=== PATIENT | female | born 1940 | race Caucasian/White ===

== ENCOUNTER 2019-11-24 06:33 | Inpatient (IN) ==
--- NOTE | 2019-10-23 13:32 | PAT Medication Instructions ---
Medication Instructions Date of Service October 23, 2019 Home Medications L. gasseri-B. bifidum-B longum [[employer]] 1 cap PO QAM cholecalciferol (vitamin D3) [Vitamin D3] 25 mcg PO QAM levothyroxine 112 mcg PO QAM lisinopril 20 mg PO QAM meloxicam 15 mg PO DAILY PRN simvastatin 10 mg PO HS vitamins A,C,T-tckn-shszqq [PreserVision AREDS] 1 tab PO BID ASK your surgeon for instructions meloxicam 15 mg PO DAILY PRN STOP taking 2 weeks before surgery vitamins A,C,G-jxrv-vgynlu [PreserVision AREDS] 1 tab PO BID DO NOT take the morning of surgery L. gasseri-B. bifidum-B longum [[employer]] 1 cap PO QAM cholecalciferol (vitamin D3) [Vitamin D3] 25 mcg PO QAM lisinopril 20 mg PO QAM Take morning of surgery With a small sip of water, OTHERWISE NOTHING TO EAT OR DRINK AFTER MIDNIGHT: levothyroxine 112 mcg PO QAM Take evening before surgery simvastatin 10 mg PO HS Other Notes If you have any questions please call us at [phone] or [phone] or [phone] or [phone]
--- NOTE | 2019-10-25 11:55 | Anesthesiology Consultation ---
Date of Service October 25, 2019 Assessment & Plan (1) Encounter for pre-operative examination: Chart Review Chart Review: Acceptable Risk for Surgery (pending Covid testing ) and Patient seen in Pre Admission Testing Per PAT appt 10/25/19, patient traveled to [facility] two weeks ago to visit son. Wore mask and social distance while visiting outside. Does admit to congestion secondary to allergies- chronic and stable. Educated patient to foll ow up with surgeon's office regarding Covid testing. Educated on importance of self quarantining, social distancing and wearing mask in public both for herself and household contacts. Teaching & Discussion Pre-Anesthesia Teaching/Discussion Notes: Instructed NPO after midnight before surgery,except medications with 15 cc of water. Medication instructions provided according to the PAT guidelines. History Surgery Operation Date: 11/24/19 07:00 Proposed Procedures p Right Total Shoulder Arthroplasty - Carter Norwood, Height/Weight Height: 5 ft 5 in Weight: 83.9 kg Allergies Allergy/AdvReac Type Severity Reaction Status Date / Time cashew nut Allergy Intermediate "FUNNY Verified 10/19/19 11:10 FEELING IN THROAT" latex Allergy Intermediate "BURN ON Verified 10/25/19 11:57 BODY" sulfite Allergy Mild RASH Verified 10/19/19 11:10 No Known Drug Allergies Allergy Unknown . Verified 03/18/16 07:50 Medications Home Medications Medication Instructions Recorded Confirmed Last Taken L. gasseri-B. bifidum-B longum 1 cap PO QAM 10/19/19 10/19/19 Unknown [[facility]] cholecalciferol (vitamin D3) 25 mcg PO QAM 10/19/19 10/19/19 Unknown [Vitamin D3] levothyroxine 112 mcg PO QAM 10/19/19 10/19/19 Unknown lisinopril 20 mg PO QAM 10/19/19 10/19/19 Unknown meloxicam 15 mg PO DAILY PRN 10/19/19 10/19/19 Unknown simvastatin 10 mg PO HS 10/19/19 10/19/19 Unknown vitamins A,C,G-xucp-lkjltc 1 tab PO BID 10/19/19 10/19/19 Unknown [PreserVision AREDS] tramadol 50 mg tablet 50 mg PO Q6H PRN #30 tab 10/25/19 10/25/19 Unknown Past Medical History Medical History Environmental allergies Heart palpitations HX 2006- s/p ablation- thought palpitations were triggered by elevated Synthyroid dose History of skin cancer CHIN AREA (REMOVED) Hyperlipidemia Hypertension Hypothyroidism Macular degeneration LEFT EYE Osteoarthritis Overactive bladder Exercise / Class Metabolic Activity II 4-5 Yardwork/Stairs/Walk up hill (one flight of stairs - no chest pain or SOB) Past Family History Family History Other No significant family history Past Surgical History Surgical History History of cardiac radiofrequency ablation 2005 AT [facility] History of cataract surgery RT/LEFT History of colonoscopy History of tonsillectomy History of tooth extraction Past Anesthesia History No Hx of Anesthesia Complications and No Family Hx of Anesthesia Complications History of PONV No Hx of PONV (pain meds can cause nausea ) and No Hx of Motion Sickness Social History Smoking Status: Former smoker (smoked socially in college ) tobacco type: cigarettes Do You Dip or Chew Tobacco: No Smoking End Date: QUIT 50 YEARS AGO Hx Alcohol Use: Yes alcohol intake frequency: holidays/special occasions only Hx Substance Use: No substance use type: does not use Review of Systems Patient denies chest pain, shortness of breath, dyspnea on exertion, reflux, cough, wheezing, palpitations. No hx of seizures, stroke, UT, apnea/snoring (does live alone). No hx of blood clots or blood transfusions Physical Exam Vital Signs VITALS BP 137/74 P 67 TEMP 98.1 SP02 96% RESP 16 Constitutional no acute distress ENMT Mouth: no TMJ clicking Thyromental Distance: > or= 3.5 Finger Breadths (3.5) Mallampati Class: I Partial lower dentures Crowns on top and bottom front teeth Neck + limited neck extension (moderate ) Respiratory normal respiratory effort; no respiratory distress Auscultation: lungs clear to auscultation bilaterally; no wheezes Cardiovascular Rate/Rhythm: regular rate and regular rhythm Heart Sounds: no murmur Vessels: no carotid bruit Musculoskeletal Spine: no pain with cervical ROM Neurologic moves all extremities Psychiatric Orientation: alert Testing Laboratory Results 10/25/19 12:15 10/25/19 12:15 PT 10.8 Seconds (9.0-12.0) 10/25/19 12:15 INR 1.0 (0.9-1.1) 10/25/19 12:15 APTT 30.5 Seconds (21.0-31.0) 10/25/19 12:15 Blood Type O Negative 10/25/19 12:15 Antibody Screen NEGATIVE 10/25/19 12:15 Electrocardiogram Date: 10/25/19 Findings: + NSR @ (63) RBBB. Chest X-Ray Date: 10/25/19 Findings: + NAD
--- NOTE | 2019-10-25 13:13 | XRay Report ---
XR chest Pre-admission PA/Lat CLINICAL HISTORY: Preoperative evaluation. COMPARISON STUDY: Chest radiograph December 07, 2006. FINDINGS: Lung volumes are normal. Lungs are clear. There is no pneumothorax or pleural effusion. Car diac size is normal. Mediastinal contours are normal. There is no evidence for pulmonary edema. Osteo arthritis of the bilateral glenohumeral joints, greater on the left, is incidentally noted. IMPRESSION: No acute cardiopulmonary findings. ACT 112: Negative or not required by law. Electronically signed by: John Grullon M.D. 10/25/2019 1:12 PM
[2019-10-25 14:14] LABS: Basophils # (auto) 0.02 K/uL (0-0.2); Basophils % (auto) 0.3 %; Eosinophils # (auto) 0.05 K/uL (0-0.5); Eosinophils % (auto) 0.7 %; Hematocrit (blood only) 43.7 % (37-47); Hemoglobin 14.4 g/dL (12.0-16.0); Immature Granulocytes # (auto) 0.02 K/uL (0.00-0.02); Immature Granulocytes % (auto) 0.3 %; Lymphocytes # (auto) 0.89 K/uL (1.2-3.4); Mean Corpuscular Hemoglobin 30.1 pg (25-34); Mean Corpuscular Volume 91.2 fL (80-100); Mean Platelet Volume 9.9 fL (7.4-10.4); Monocytes # (auto) 0.31 K/uL (0.11-0.59); Monocytes % (auto) 4.5 %; Neutrophils # (auto) 5.53 K/uL (1.4-6.5); Neutrophils % (auto) 81.2 %; Platelet Count 282 K/uL (130-400); RDW Coefficient of Variation 12.9 % (11.5-14.5); RDW Standard Deviation 42.9 fL (36.4-46.3); Red Blood Count 4.79 M/uL (4.2-5.4); White Blood Count 6.82 K/uL (4.8-10.8)
[2019-10-25 14:20] LABS: BUN Creatinine Ratio 22.2 (10-20); Calcium 8.8 mg/dl (8.5-10.1); Creatinine Clr Calc Pharmacy 70.7 ml/min; Est GFR (Non-African American) 82.8; Potassium 4.3 mmol/L (3.5-5.1)
[2019-10-25 14:32] LABS: Partial Thromboplastin Ratio 1.1; Partial Thromboplastin Time 30.5 Seconds (21.0-31.0); Prothrombin Time 10.8 Seconds (9.0-12.0)
--- NOTE | 2019-10-25 14:45 | Electrocardiogram Report ---
Test Reason : Blood Pressure : / mmHG Vent. Rate : 063 BPM Atrial Rate : 063 BPM P-R Int : 158 ms QRS Dur : 142 ms QT Int : 442 ms P-R-T Axes : 065 090 050 degrees QTc Int : 452 ms Normal sinus rhythm Right bundle branch block Abnormal ECG When compared with ECG of 07-DEC-2006 12:26, HR has decreased by 77 bpm Supraventricular tachycardia no longer present Right bundle branch block now present consistently Confirmed by Ari Hagan ([id number]) on 10/25/2019 2:44:45 PM Referred By: Carter Norwood Confirmed By:Ari Hagan
--- NOTE | 2019-11-23 07:39 | History & Physical Report ---
Date of Service November 23, 2019 Assessment & Plan (1) Osteoarthritis of both shoulders: We will proceed with a right total shoulder arthroplasty. Postoperatively she will be placed in a sling and kept overnight in the hospital for postoperative medical management. She plans to use [facility] upon discharge. Present on Admission?: Yes History of Present Illness Chief Complaint: Primary osteoarthritis of the right shoulder Primary Care Provider: Kristofer Dowell DO Ashtyn is a pleasant 78-year-old female who is been having bilateral shoulder pain. The right is worse than the left. She is been treated by recreation counselor at [facility]. 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 After failing extensive conservative treatment, she has elected to proceed with a right total shoulder arthroplasty. Allergies Allergy/AdvReac Type Severity Reaction Status Date / Time cashew nut Allergy Intermediate "FUNNY Verified 10/19/19 11:10 FEELING IN THROAT" latex Allergy Intermediate "BURN ON Verified 10/25/19 11:57 BODY" sulfite Allergy Mild RASH Verified 10/19/19 11:10 No Known Drug Allergies Allergy Unknown . Verified 03/18/16 07:50 Home Medications Home Medications Medication Instructions Recorded Confirmed Type L. gasseri-B. bifidum-B longum 1 cap PO QAM 10/19/19 10/19/19 History [[facility]] cholecalciferol (vitamin D3) 25 mcg PO QAM 10/19/19 10/19/19 History [Vitamin D3] levothyroxine 112 mcg PO QAM 10/19/19 10/19/19 History lisinopril 20 mg PO QAM 10/19/19 10/19/19 History meloxicam 15 mg PO DAILY PRN 10/19/19 10/19/19 History simvastatin 10 mg PO HS 10/19/19 10/19/19 History vitamins A,C,R-nlja-pfwlsx 1 tab PO BID 10/19/19 10/19/19 History [PreserV[facility] AREDS] tramadol 50 mg tablet 50 mg PO Q6H PRN #30 tab 10/25/19 10/25/19 Rx Past Med/Surg History Medical History Environmental allergies Heart palpitations HX 2005- s/p ablation- thought palpitations were triggered by elevated Synthyroid dose History of skin cancer CHIN AREA (REMOVED) Hyperlipidemia Hypertension Hypothyroidism Macular degeneration LEFT EYE Osteoarthritis Overactive bladder Surgical History History of cardiac radiofrequency ablation 2005 AT [facility] History of cataract surgery RT/LEFT History of colonoscopy History of tonsillectomy History of tooth extraction Family History Other No significant family history Social History Smoking Status: Former smoker (smoked socially in college ) Smoking End Date: QUIT 50 YEARS AGO; Second Hand Exposure: Yes ( A CHILD); Do You Dip or Chew Tobacco: No; Tobacco Cessation Education Requested by Patient: No Hx Alcohol Use: Yes Hx Substance Use: No Preferred Language: Kiswahili Shift Boss Required: No Beliefs That Will Affect Care: None Current Living Situation: Alone Feels Safe at Home: Yes Safety Concerns: Feels Safe At This Time Review of Systems Review of Systems: All systems reviewed & are unremarkable except as noted in HPI & below Physical Exam Constitutional: WD/WN, vitals as above Eyes: PERRL, conjunctivae normal, anicteric sclerae ENMT: external ear and nose normal, oropharynx normal Neck: trachea midline, no thyromegaly Respiratory: normal respiratory effort Cardiovascular: RRR, no murmur, no edema Gastrointestinal (Abdomen): normal bowel sounds, soft, nontender, no hepatosplenomegaly Musculoskeletal: Physical examination of the right shoulder reveals decreased range of motion and crepitis throughout. There is good strength with full can testing and external rotation. There is tenderness palpation along the anterior glenohumeral joint line. The right upper extremity is neurovascularly intact. Psychiatric: A+Ox3, euthymic affect Results & Data Results & Data ([facility]) Diagnostic Findings Radiographs of the right shoulder show osteoarthritis of the glenohumeral joint. There is joint space narrowing, osteophyte formation, and [id number] articulation. PG Care Time/CCT Total # of Minutes Spent Total Time Spent with Patient: Total time spent is greater than 50% in coordination of care (as documented) at patient's floor/unit and/or counseling patient: Coding Level of Care Code 32192 Initial Inpt Care Lvl 3 Diagnoses Osteoarthritis of both shoulders M19.011; M19.012
[~2019-11-24 06:33] MED LIST: ACETAMINOPHEN 500 MG TAB PO SCH; BUPIVACAINE 0.5 % 5 MG/1 ML PF 10ML VIAL ONE; CEFAZOLIN 2000MG 2,000 MG/15 ML SYR IV SCH; FAMOTIDINE 20 MG TAB PO SCH; GABAPENTIN 300 MG CAP PO SCH; LR 15ML/HR IV SCH; LR 60ML/HR IV SCH; ROPIVACAINE 0.5% HCL/PF 150 MG, BUPIVACAINE 0.5% MPF 30 ML, EPINEPHrine 30MG/30ML (OR U... INSTIL SCH; TRANEXAMIC ACID 1,000 MG **IV Intra-op IV SCH; TRANEXAMIC ACID 1,000 MG **IV Pre-op IV SCH; dexAMETHasone 4 MG TAB PO SCH
--- NOTE | 2019-11-24 06:54 | History & Physical Bridge Note ---
Date of Service November 24, 2019 History & Physical Bridge Note I have examined the patient, reviewed the History & Physical and in the interval since the performance of the History & Physical I have noted the following changes of clinical significance: no changes noted
[2019-11-24] MEDS ORDERED: MIDAZOLAM HCL 1 MG/ML 2ML VIAL ONE (07:54)
[2019-11-24] MEDS ORDERED: fentaNYL citrate 100 MCG/2 ML VIAL ONE (07:54)
[2019-11-24] MEDS ORDERED: METOCLOPRAMIDE HCL INJ 5 MG/ML 2 ML VIAL IV PRN ×2 (08:01→12:16)
[2019-11-24] MEDS ORDERED: ATROPINE SULFATE 0.1 MG/ML 10ML SYR IV PRN (08:01)
[2019-11-24] MEDS ORDERED: PROMETHAZINE HCL 12.5 MG in SODIUM CHLORIDE 0.9% 50 ML IV PRN (08:01)
[2019-11-24] MEDS ORDERED: HYDROmorphone INJ 2 MG/ML SYR/VIAL IV PRN (08:01)
[2019-11-24] MEDS ORDERED: ePHEDrine sulfate 50 MG/ML AMP IV PRN (08:01)
[2019-11-24] MEDS ORDERED: ONDANSETRON INJ 2 MG/ML 2 ML VIAL IV PRN ×2 (08:01→12:16)
[2019-11-24] MEDS ORDERED: fentaNYL citrate 100 MCG/2 ML VIAL IV PRN (08:01)
[2019-11-24] MEDS ORDERED: LIDOCAINE HCL 2% MPF (LOCAL) 5 ML VIAL INFIL ONE (08:13)
[2019-11-24] MEDS ORDERED: ORTHO JOINT ANESTHETIC ONE (08:16)
[2019-11-24] MEDS ORDERED: DEXAMETHASONE SOD INJ 4 MG/ML VIAL ONE (09:54)
[2019-11-24] MEDS ORDERED: GLYCOPYRROLATE 0.2 MG/ML VIAL ONE (09:54)
[2019-11-24] MEDS ORDERED: PROPOFOL IV EMULSION 10 MG/ML 20 ML VIAL IV ONE (09:54)
[2019-11-24] MEDS ORDERED: ROCURONIUM BROMIDE 10 MG/ML 5 ML VIAL IV ONE (09:54)
[2019-11-24] MEDS ORDERED: ONDANSETRON INJ 2 MG/ML 2 ML VIAL ONE (09:54)
[2019-11-24] MEDS ORDERED: NEOSTIGMINE METHYLSULFATE 5 MG/5 ML SYR ONE (09:54)
[2019-11-24] MEDS ORDERED: LIDOCAINE HCL 2% 2 ML VIAL/AMP(20MG/ML) INFIL ONE (09:54)
--- NOTE | 2019-11-24 10:26 | Operative Report ---
PG Post Operative Report Pre & Post Diagnosis Operation Date: 11/24/19 08:50 Pre-Op Diagnosis: Right Shoulder Degenerative Joint Disease with disease of the long head of the biceps tendon Post-Op Diagnosis: Right Shoulder Degenerative Joint Disease with disease of the long head of the biceps tendon I identified the patient and participated in the time-out.: Yes Procedure Operation Date: 11/24/19 08:50 Actual Procedures p Right Total Shoulder Arthroplasty with open biceps tenodesis as a distinct and separate procedure (modifier 59) (Right) - Carter Norwood DO Surgeon Carter Norwood DO Contact Center Agent Carter Verdin PAC Estimated Blood Loss 200 Findings Consistent with Post-Op Diagnosis Specimens Right humeral head Complications none Disposition Disposition: Recovery Room Indications Ashtyn is a pleasant 79-year-old female who presented my office with chronic increasing right shoulder pain. X-rays and clinical examination were diagnostic for advanced osteoarthritis of the right shoulder. After failing conservative treatment, she elected proceed with a right total shoulder arthroplasty. Description of Procedure A CPT code modifier 59: The long head of the biceps tendon was enlarged and inflamed consistent with tendinopathy. A tenodesis was opted. This was a separate and distinct portion of the procedure. For these reasons, a CPT code modifier 59 will be added to this case. Implants used: I used a Biomet Comprehensive total shoulder arthroplasty system with a size 10 press fit micro-humeral stem, a size 46 x 18 eccentric humeral head, and a 3 si ze glenoid with a TM peg. The glenoid was cemented in place with Palacos G cement. Ashtyn arrived at [facility] for the above procedure. She was seen in the preoperative holding area and the operative extremity was identified and signed. She was given a preoperative antibiotic, TXA, and an interscalene nerve block. She was taken back to the operating room, laid on table in supine p osition, and put under general anesthesia. She was then put into the beachchair position. The shoulder was then prepped and draped in sterile fashion. A timeout was done and the patient and the operative extremity was properly identified. A deltopectoral approach was used. Dissection was taken down through the fascia and the deltoid was retracted laterally and the conjoined tendon was retracted medially. The anterior shoulder was exposed. The biceps groove was opened up and the biceps tendon was examined extensively. The biceps tendon demonstrated enlargement and inflammatory changes consistent with longstanding inflammation in the context of osteoarthritis. The long head of the biceps tendon was then tenodesed to the upper border of the pectoralis major. This was a separate and distinct portion of the procedure. The subscapularis was then released off the lesser tuberosity with a centimeter of cuff tissue remaining. The inferior capsule was released and the humeral head was dislocated. The rotator cuff was inspected and intact. A canal finding reamer was sent down the center of the humeral canal. Sequential reaming up to a size 10 reamer was done. Offset reamer a proximal humeral resection guide was placed. The proximal humerus was resected at 135 of inclination and 30 of retroversion. Inferior osteophytes were then removed and the glenoid was exposed. Time was spent doing an appropriate labral release. The glenoid measured to be a size 3. A [email or web address] signature guide was then attached onto the anterior rim of the glenoid. A 3.2 mm Steinmann pin was then placed in the total shoulder arthroplasty hole. The glenoid was then reamed with a propeller reamer. The central post cutter was then used to prepare for the central boss. The cannulated peripheral peg drill guide was then placed and 3 peg holes were drilled. The final size 3 glenoid was then cemented in place with Palacos G cement. Surrounding soft tissues were then injected with 100 cc of an orthopedic pain control cocktail. Once cement had dried the proximal humerus was once again exposed. Sequential broaching of the humerus up to a size 10 broach was done. Off that broach a size 46 x 18 eccentric humeral head was trialed. The shoulder was then reduced, brought through a full range of motion, and felt to be stable. The shoulder was then dislocated and the broach was removed. The final size plan micro humeral stem implant was then impacted into place. A size 46 x 18 eccentric humeral head was then impacted onto the humeral stem. The shoulder was then reduced and once again brought through a full range of motion and felt to be stable. The subscapularis was then tenodesed back to the lesser tuberosity with transosseous FiberWire sutures and side to side sutures with the arm in 45 of external rotation. 2 sutures were placed in the lateral rotator interval. A dilute betadyne lavage was then done for 3 minutes. The joint was then irrigated with normal saline solution. Hemostasis was obtained. The interval was closed with 2-0 Vicryl suture. The skin was closed with 2-0 Vicryl and nayely. A Silverlon was placed and the arm was rested in a regular arm sling. She was then extubated and transferred to a hospital bed. She was taken to the postanesthesia care unit in stable condition. She tolerated the procedure well. Carter Verdin PA-C, was present for the entire procedure. He was critical for patient positioning, prepping, draping, retraction exposure, wound closure and application of sterile dressing. I attest to the content of the Intraoperative Record and any orders documented therein. Any exceptions are noted below.
--- NOTE | 2019-11-24 11:20 | XRay Report ---
XR shoulder RT min 2V routine HISTORY: 79 years-old Female Post shoulder surgery right shoulder arthroplasty COMPARISON: CT right shoulder 10/25/2019 TECHNIQUE: 2 views the right shoulder FINDINGS: Satisfactory positioning of the right shoulder total joint arthroplasty. No acute fracture or retaine d foreign body. Anterior skin nayely are noted along with expected postsurgical soft tissue swelling and deep tissue air. Minimal linear right lung base at subsegmental atelectasis. IMPRESSION: Right shoulder total joint arthroplasty with expected postoperative changes. ACT 112: Negative or not required by law. The above report was generated using voice recognition software. It may contain grammatical, syntax o r spelling errors. Electronically signed by: Landry Trejo M.D. 11/24/2019 11:18 AM
[2019-11-24] MEDS ORDERED: NALOXONE HCL 0.4 MG/1 ML VIAL/CARP IV PRN (12:16)
[2019-11-24] MEDS ORDERED: bisacodyL 10 MG SUPP PR PRN (12:16)
[2019-11-24] MEDS ORDERED: OXYCODONE HCL IR 5 MG TAB (IMMEDIATE RELEASE) PO PRN (12:16)
[2019-11-24] MEDS ORDERED: HYDROmorphone INJ 0.5 MG/0.5 ML SYR IV PRN (12:16)
[2019-11-24] MEDS ORDERED: MAGNESIUM HYDROXIDE SUSP 30 ML UDC PO PRN (12:16)
--- NOTE | 2019-11-24 12:46 | Anesthesiology Progress Note ---
Date of Service November 24, 2019 Anesthesia Post Procedure Vital Signs Vital Signs: Temp Pulse Pulse Resp BP Pulse Ox 11/24/19 12:27 36.4 C L 75 16 113/71 93 11/24/19 12:00 36.3 C L 82 16 100/62 95 11/24/19 11:35 36.2 C L 74 16 114/60 95 11/24/19 11:25 79 16 118/82 98 11/24/19 11:15 76 16 130/64 98 11/24/19 11:06 36.2 C L 78 16 118/67 98 11/24/19 07:20 37.3 C 80 20 173/97 H 95 Pain Intensity Right Shoulder: Pain Intensity: 6 Transfer of Care Handoff Completed per policy Notes Mental Status: alert / awake / arousable and participated in evaluation Patient Amnestic to Procedure: Yes Nausea / Vomiting: adequately controlled Pain: adequately controlled Airway Patency, RR, SpO2: stable & adequate BP & HR: stable & adequate Hydration State: stable & adequate Anesthetic Complications: no major complications apparent
[2019-11-24] MEDS: SODIUM CHLORIDE 0.9% 1000ML 1,000 ML IV SCH ×2 (13:19→23:37)
[2019-11-24] MEDS: KETOROLAC TROMETHAMINE 15 MG/ML VIAL IV SCH ×2 (13:21→20:08)
[2019-11-24] MEDS: ACETAMINOPHEN 500 MG TAB PO SCH ×2 (13:22→21:48)
[2019-11-24] MEDS: CEFAZOLIN 2000MG 2,000 MG/15 ML SYR IV SCH ×2 (16:40→23:42)
[2019-11-24] MEDS: DOCUSATE SODIUM 100 MG CAP PO SCH (20:08)
[2019-11-24] MEDS ORDERED: SIMVASTATIN 10 MG TAB PO SCH (21:00)
[2019-11-24] MEDS ORDERED: SENNA 8.6 MG TAB PO SCH (21:00)
[2019-11-25] MEDS: KETOROLAC TROMETHAMINE 15 MG/ML VIAL IV SCH ×3 (00:34→12:38)
[2019-11-25] MEDS: ACETAMINOPHEN 500 MG TAB PO SCH ×2 (06:05→12:38)
[2019-11-25] MEDS ORDERED: LEVOTHYROXINE SODIUM 112 MCG TABLET PO SCH (06:30)
[2019-11-25 06:36] LABS: Basophils # (auto) 0.01 K/uL (0-0.2); Basophils % (auto) 0.1 %; Hematocrit (blood only) 38.3 % (37-47); Hemoglobin 12.8 g/dL (12.0-16.0); Immature Granulocytes # (auto) 0.02 K/uL (0.00-0.02); Immature Granulocytes % (auto) 0.2 %; Lymphocytes # (auto) 1.07 K/uL (1.2-3.4); Mean Corpuscular Hemoglobin 30.3 pg (25-34); Mean Corpuscular Hgb Conc 33.4 g/dL (32-36); Mean Corpuscular Volume 90.8 fL (80-100); Mean Platelet Volume 9.2 fL (7.4-10.4); Monocytes # (auto) 1.32 K/uL (0.11-0.59); Monocytes % (auto) 11.1 %; Neutrophils # (auto) 9.46 K/uL (1.4-6.5); Neutrophils % (auto) 79.6 %; Platelet Count 261 K/uL (130-400); RDW Coefficient of Variation 13.5 % (11.5-14.5); RDW Standard Deviation 44.5 fL (36.4-46.3); Red Blood Count 4.22 M/uL (4.2-5.4); White Blood Count 11.88 K/uL (4.8-10.8)
[2019-11-25 07:04] LABS: Potassium 4.1 mmol/L (3.5-5.1)
[2019-11-25 07:05] LABS: Calcium 8.3 mg/dl (8.5-10.1); Est GFR (African American) 97.2; Est GFR (Non-African American) 83.9
--- NOTE | 2019-11-25 07:32 | Orthopedic Progress Note ---
Date of Service November 25, 2019 Assessment & Plan (1) Status post replacement of right shoulder joint: Overall she is doing very well. She is not having much pain in the right shoulder. She will be seen by physical therapy this morning for ambulation and range of motion exercises. She can be discharged home later today. She will follow-up with orthopedics in 2 weeks. Present on Admission?: Yes Laurie Chamorro was seen and examined at bedside this morning. Overall she is doing very well. She not having much pain in the right shoulder. She was able to get some sleep last night. She has no complaints. Physical Exam Musculoskeletal: On physical examination of the right shoulder, the Silverlon dressing is clean and dry. She is wearing her sling as instructed. Her radial, median, and ulnar nerves are checked and intact at her wrist. Her axillary nerve was not checked yet. Results & Data ([facility]) Vital Signs (Past 12 Hours) Vital Signs Temp Pulse Pulse Resp BP Pulse Ox 11/25/19 02:34 36.7 C 75 16 145/70 H 90 11/24/19 23:01 36.7 C 67 16 131/73 92 11/24/19 19:32 36.6 C 71 16 122/71 92 Laboratory Results H & H 10/25/19 11/25/19 Range/Units 12:15 05:53 Hgb 14.4 12.8 (12.0-16.0) g/dL Hct 43.7 38.3 (37-47) % Coagulation 10/25/19 Range/Units 12:15 INR 1.0 (0.9-1.1) Diagnostic Findings Postoperative x-rays of the right shoulder show the prosthesis to be in anatomic alignment without any evidence of fracture, dislocation, or loosening. PG Care Time/CCT Total # of Minutes Spent Total Time Spent with Patient: Total time spent is greater than 50% in coordination of care (as documented) at patient's floor/unit and/or counseling patient: Coding Level of Care Code None Diagnoses Status post replacement of right shoulder joint Z96.611
--- NOTE | 2019-11-25 07:33 | Discharge Summary ---
Date of Service November 25, 2019 Admission HPI Per Admitting Provider Ashtyn is a pleasant 78-year-old female who is been having bilateral shoulder pain. The right is worse than the left. She is been treated by [facility] at [facility]. 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 After failing extensive conservative treatment, she has elected to proceed with a right total shoulder arthroplasty. Principal Diagnosis Right shoulder replacement Discharge Data Allergies Allergy/AdvReac Type Severity Reaction Status Date / Time cashew nut Allergy Intermediate "FUNNY Verified 11/24/19 07:17 FEELING IN THROAT" latex Allergy Intermediate "BURN ON Verified 11/24/19 07:17 BODY" sulfite Allergy Mild RASH Verified 11/24/19 07:17 No Known Drug Allergies Allergy Unknown . Verified 11/24/19 07:17 Consultations 11/24/19 12:16 Consult Case Management - Discharge Planning Routine Procedures Performed Operation Date: 11/24/19 08:50 Actual Procedures p Right Total Shoulder Arthroplasty(Right) - Carter Norwood DO Ordered Studies 11/24/19 05:00 US - OR guided needle placemen Routine Hospital Course (1) Status post replacement of right shoulder joint: On November 24, 2019 that he arrived at [facility] and underwent a right shoulder replacement without complication. She had a general anesthetic and a right interscalene nerve block. Postoperatively she was placed in a sling and transferred to the general orthopedic floors. Her hospital course was uneventful. On postop day #1 her H&H was stable and her pain was well controlled. She was able to participate well with physical therapy doing ambulation and range of motion exercises. She was then discharged home. She will follow-up with orthopedics in 2 weeks. Total Time Total Time Spent Total Time Spent (In Minutes): 20 Discharge Plan Discharge Items Patient Disposition: Home - Home Health Services Reason For Visit: Right Shoulder Degeneartive Joint Disease Discharge Diagnosis: Right shoulder replacement Activity: As commented below Non-emergency contact: Surgeon Call non-emergency contact if: your wound has increased redness and your wound has increased drainage Follow-up/Referrals: Kristofer Dowell DO [Primary Care Provider] - Diet: Regular Addtl Attending Provider Instructions: Activity and Therapy Recommendations: * If you are using [facility] then therapy will be provided at your home until they feel you have accomplished all of your goals. * If you are using [facility] then Physical Therapy will be provided until they feel you are ready to start Outpatient Physical Therapy. * If you are not using home therapy then Outpatient Physical Therapy should start about 3-5 days from your day of surgery. Therapy will last about 8-12 weeks * Wear your sling for 3 weeks, unless otherwise instructed. You may remove your sling to shower and to dress, but otherwise, you should be in your sling at all times, including while sleeping * The shoulder replacement is very stable and you can use your hand while in the sling * You were shown a series of exercises in the hospital. Do these exercises daily including the exercises you were shown in physical therapy. Medications: * Narcotic You will likely be sent home from the hospital with a prescription for the narcotic pain medication that worked best throughout your stay. * Other medications may be prescribed for specific circumstances. If you have any questions, please call the office at . * Resume previous home medications unless otherwise instructed Dressing Care: Leave the Silverlon dressing in place for 7 days. After 7 days you may remove the dressing. If the incision is not draining then you may leave the nayely open to air. If there is a little bit of drainage or if the nayely are getting stuck on your clothing then cover the incision with a dry dressing. The nayely will be removed at your 2 week follow-up appointment. Showering: You may shower with the Silverlon dressing in place. Let the shower spray hit the other shoulder. You can pat the plastic dry. If the dressing becomes wet underneath the plastic then simply remove the dressing. Keep the incision dry until you are 7 days out from the day of surgery. At that time you can shower with the nayely exposed. Let the soapy shower water run over the nayely and pat them dry. Do not scrub or soak the incision. Things To Watch For: * Drainage from the incision site that occurs more than one week after your surgery. * Increased redness at the incision site. * Fever above 102 degrees Fahrenheit. * Unusual chest pain or shortness of breath. * Call [facility] at with any of the above problems Follow-Up Visit: Follow-up with Dr. Norwood's PA (Carter Verdin) 2-3 weeks after your day of surgery. He will remove your nayely and answer any questions. If you have any additional questions or concerns, Dr Norwood is usually in the office at the same time and will be available An appointment was probably scheduled when you signed-up for surgery in the office. If you have any questions call More detailed instructions as well as Frequently Asked Questions were provided in a folder by our office when you signed-up for surgery. Please review these instructions when you get home. If you have any further questions or concerns, please feel free to call the office at [phone] Pending Studies at Discharge: No Stand-Alone Forms: My [facility] [employer], Smoking Cessation Medications and DC Order Prescriptions: Continued lisinopril 20 mg Tablet 20 mg PO QAM RF: 0 simvastatin 10 mg Tablet 10 mg PO HS RF: 0 levothyroxine 112 mcg Tablet 112 mcg PO QAM RF: 0 cholecalciferol (vitamin D3) [Vitamin D3] 25 mcg (1,000 unit) Tablet 25 mcg PO QAM RF: 0 PreserVision AREDS [id number] Tablet 1 tab PO BID RF: 0 iogyn 1.5 billion cell Capsule 1 cap PO QAM RF: 0 meloxicam 15 mg Tablet 15 mg PO DAILY PRN (Reason: Pain) RF: 0 tramadol 50 mg tablet 50 mg PO Q6H PRN (Reason: pain) Qty: 30 RF: 0 Discharge Orders: Discharge Order (Routine); Ordered 11/25/19 Ordered By: Carter Norwood Admission Data Admit Date/Time: 11/24/19 10:47 Attending Provider: Carter Norwood Admit Provider: Carter Norwood Primary Care Provider: Kristofer Dowell Other Providers: [facility] Coding Level of Care Code D/C Day Management <30 mins Diagnoses Status post replacement of right shoulder joint Z96.611
[2019-11-25] MEDS ORDERED: dexAMETHasone 4 MG TAB PO SCH (08:00)
[2019-11-25] MEDS: SODIUM CHLORIDE 0.9% 1000ML 1,000 ML IV SCH (08:51)
[2019-11-25] MEDS: DOCUSATE SODIUM 100 MG CAP PO SCH (08:52)
[2019-11-25] MEDS ORDERED: MULTIVITAMIN TAB PO SCH (09:00)
[2019-11-25] MEDS ORDERED: lisinopriL 20 MG TAB PO SCH (09:00)
== END 2019-11-25 13:56 | disposition home health service (06) | DRG 483 ==
LOC: ASU 06:33 → 3N 10:47